=== PATIENT | male | born 1955 | race Caucasian/White ===

== ENCOUNTER 2016-08-10 06:17 | Day surgery (SDC) | payer OTHER, BC ==
[2016-07-27 08:47] VITALS: BMI 33.0
--- NOTE | 2016-07-27 09:22 | PAT Medication Instructions ---
Service Date Jul 27, 2016. Current Home Medication List Aspirin (Aspirin Ec), 81 MG PO QAM Medication Instructions For Your Scheduled Surgery - Take the following medications the morning of surgery with a sip of water: Aspirin (Aspirin Ec), 81 MG PO QAM (not told to stop by surgeon) If you have any questions please call us at [phone] or [phone] ( [place]) or [phone]
[~2016-08-10] VITALS: Ht 180.3 cm; Wt 111.0 kg
[~2016-08-10 06:17] MED LIST: ASPI81TA28 PO; CEFAZOLIN 2000 MG/60 ML D5W IV SCH; LACTATED RINGER'S 1000ML 1,000 ML IV SCH
[2016-08-10 06:49] VITALS: BP 141/83; PULSE 63; TEMP 36.9; O2SAT 95; Ht 180.3 cm; Wt 111.0 kg
[2016-08-10] MEDS ORDERED: FENTANYL CITRATE INJ 50 MCG/1 ML 2 ML VIAL ONE ×2 (07:30→09:09)
[2016-08-10] MEDS ORDERED: MIDAZOLAM HCL 1 MG/ML 2ML VIAL ONE (07:30)
[2016-08-10] MEDS ORDERED: BUPIVACAINE 0.5 % 5 MG/1 ML MPF 30ML VIAL ONE (08:26)
[2016-08-10] MEDS ORDERED: LIDOCAINE HCL 1% 20 ML VIAL ONE (08:26)
--- NOTE | 2016-08-10 08:44 | History & Physical Bridge Note ---
H&P Re-Evaluation Bridge Note: I have examined the patient, reviewed the History & Physical and in the interval since the performance of the History & Physical I have noted the following changes of clinical significance: No changes noted
--- NOTE | 2016-08-10 08:53 | DIAGNOSTIC IMAGING REPORT ---
LIMITED ABDOMINAL ULTRASOUND TO EVALUATE FOR HERNIA HISTORY: Epigastric hernia. COMPARISON: Abdominal ultrasound January 23, [address] of the abdomen and pelvis January 28, 2016. FINDINGS: Targeted sonography of the left aspect of the abdomen demonstrated a nonreducible fat-containing left mid to upper abdominal hernia. This corresponds to the hernia shown on prior ultrasound and CT. This was marked by Dr. Ace at time of ultrasound. IMPRESSION: Nonreducible fat-containing left mid to upper abdominal hernia. Electronically signed by: Magdi Mobley M.D. 08/10/2016 8:52 AM Dictated Date/Time: 08/10/2016 8:50 AM
[2016-08-10] MEDS ORDERED: PROPOFOL IV EMULSION 10 MG/ML 20 ML VIAL IV ONE (09:40)
[2016-08-10] MEDS ORDERED: BUPIVACAINE 0.5 % 5 MG/1 ML MPF 30ML VIAL INJ ONE (09:57)
--- NOTE | 2016-08-10 10:10 | [facility] Post Operative Brief Note ---
Immediate Operative Summary Operative Date Aug 10, 2016. Pre-Operative Diagnosis epigastric hernia Post-Operative Diagnosis epigastric hernia Procedure(s) Performed Epigastric Hernia Repair Surgeon Dr. Hany Ace Barback Surgeon(s) Tiffanie Leyva PA-C Estimated Blood Loss 5ml Findings See dictation Specimens none per surgeon Drains Noone Anesthesia General Complication(s) None Disposition Recovery Room / PACU
--- NOTE | 2016-08-10 10:12 | Discharge Instructions ---
Discharge Instructions Admission Reason for Admission: Epigastric Hernia Discharge Discharge Diagnosis / Problem: Same Discharge Goals Goal(s): Decrease discomfort Activity Recommendations Activity Limitations: per Instructions/Follow-up section Lifting Limitations: no more than 10 pounds Shower/Bathe: tomorrow (Shower only) . Instructions / Follow-Up Instructions / Follow-Up ACTIVITY RECOMMENDATIONS: * Walk as much as possible. * No heavy lifting (>10 lbs.) for 6 weeks. SPECIAL CARE INSTRUCTIONS: * Ice to hernia repair site on and off until bedtime tonight. * May shower in 24 hours. Let water run over area and pat dry. * Leave steri strips on for one week. * Call the surgeon's office with any questions or concerns - (ex. temperature higher than 101 degrees F, excessive bleeding or pain). MEDICATIONS: Resume previous medications unless instructed otherwise by your surgeon. * Ibuprofen 600 mg every 6 hours with food * Percocet 1 every 4 hours, as needed for pain FOLLOW UP VISIT: If not already scheduled, please call the office to schedule a two week follow- up appointment. Office number Current Hospital Diet Patient's current hospital diet: Discharge Diet Recommended Diet: Regular Diet Procedures Procedures Performed: Epigastric Hernia Repair Pending Studies Studies pending at discharge: no Medical Emergencies . Who to Call and When: Medical Emergencies: If at any time you feel your situation is an emergency, please call 911 immediately. . Non-Emergent Contact Non-Emergency issues call your: Primary Care Provider, Surgeon Call Non-Emergent contact if: your pain is worsening, wound has increased redness, wound has increased pain . "Provider Documentation" section prepared by Hany Ace. VTE Core Measure Inpt VTE Proph given/why not?: Treatment not indicated
[2016-08-10] MEDS ORDERED: ONDANSETRON INJ 2 MG/ML 2 ML VIAL IV PRN ×2 (10:15→10:30)
[2016-08-10] MEDS ORDERED: OXYCODONE/ACETAMINOPHEN 5-325 TAB PO PRN (10:15)
[2016-08-10] MEDS ORDERED: MoRPHine SULFATE 4 MG/ML 1 ML CARP\\VIAL IV PRN (10:15)
[2016-08-10] MEDS ORDERED: HYDROmorphone INJ 1 MG/ML SYR IV PRN (10:30)
[2016-08-10] MEDS ORDERED: FENTANYL CITRATE INJ 50 MCG/1 ML 2 ML VIAL IV PRN (10:30)
[2016-08-10] MEDS ORDERED: MEPERIDINE HCL 25 MG/ML CARP IV PRN (10:30)
[2016-08-10] MEDS ORDERED: ATROPINE SULFATE 0.1 MG/ML 5ML SYR IV PRN (10:30)
[2016-08-10] MEDS ORDERED: LABETALOL HCL IV 5 MG/ML 20ML IV PRN (10:30)
[2016-08-10] MEDS ORDERED: EpHEDrine SULFATE INJ 50 MG/ML AMP IV PRN (10:30)
[2016-08-10 10:50] VITALS: BP 136/78; PULSE 58; TEMP 36.8; O2SAT 93
--- NOTE | 2016-08-10 11:00 | OPERATIVE REPORT ---
DATE OF OPERATION: 08/10/2016 PREOPERATIVE DIAGNOSIS: Epigastric hernia. POSTOPERATIVE DIAGNOSIS: Same. PROCEDURE: Repair of epigastric hernia. SURGEON: Dr. Ace. MOBILE DEVELOPER: Shweta Leyva PA-C. FINDINGS: The patient had 2 small epigastric defects through which preperitoneal fat was protruding. One measured about 3 mm and the other about 7. There was a fascial bridge measuring 3-4 mm between them. The fascial bridge was divided, creating a single defect, and the hernia was then repaired. There were no incarcerated intraabdominal contents. TECHNIQUE: The patient was given general anesthetic after he had been marked using ultrasound in the holding area. The area was prepped and draped in the usual sterile fashion. Transverse incision was made, carried down through the subcutaneous tissue. The subcutaneous tissue was opened widely to expose the 2 areas of protruding fat. The smaller one which was more toward the right side was first identified. The fat was removed using cautery which allowed me to identify the edges of the fascial defect. I then noted the larger protrusion of fat more toward the left side. This fat was removed, allowing me to identify that fascial edge and away from the surrounding tissues. The fascial bridge was then easily seen and divided. The edges of the fascia were elevated and a preperitoneal retrofascial space was created. This was created for a distance of at least 6 cm from ammu-zl-ilzk and boa-dg-[id number]. Hemostasis was obtained using electrocautery. A 6.3 cm C-QUR V-patch was placed in the preperitoneal retrofascial position. The struts were attached to the edges of the fascia using 0 PDS and the fascial opening was then closed with a running #1 PDS. Hemostasis was obtained. The deep tissues were closed with interrupted 2-0 Vicryl. The superficial subcutaneous tissue was closed with running 3-0 Vicryl and the skin was closed with 4-0 Monocryl in a running subcuticular fashion. The skin was anesthetized with 0.5% Marcaine. The skin was cleansed, dried, benzoin placed, Steri-Strips applied. Estimated blood loss was 5 mL. Sponge, needle and instrument counts were correct prior to closure. The patient tolerated the surgical procedure without complication and he was transferred to recovery. I attest to the content of the Intraoperative Record and any orders documented therein. Any exceptio ns are noted below.
[2016-08-10 11:20] VITALS: BP 136/86; PULSE 56; O2SAT 95
[2016-08-10] MEDS ORDERED: SODIUM CHLORIDE 0.9% 1000ML 1,000 ML IV SCH (11:30)
[2016-08-10 11:55] VITALS: BP 144/81; PULSE 54; TEMP 36.4; O2SAT 96
--- NOTE | 2016-08-10 12:52 | Anesthesiology Progress Note ---
Anesthesia Post Op Note Date & Time Aug 10, 2016 at 12:53 Vital Signs Pain Intensity: 2 Vital Signs Past 12 Hours Date Time Temp Pulse Resp B/P Pulse Ox O2 Delivery O2 Flow Rate FiO2 08/10/16 11:55 36.4 54 18 144/81 96 Room Air 08/10/16 11:20 56 18 136/86 95 Room Air 08/10/16 10:50 36.8 58 16 136/78 93 Room Air 08/10/16 10:44 36.4 08/10/16 10:40 56 16 140/77 92 Room Air 08/10/16 10:30 57 16 134/86 98 Mask 10 08/10/16 10:20 58 16 136/83 97 Mask 10 08/10/16 10:10 36.4 62 16 128/84 95 Mask 10 08/10/16 06:49 36.9 63 18 141/83 95 Room Air Notes Mental Status: alert / awake / arousable, participated in evaluation Pt Amnestic to Procedure: Yes Nausea / Vomiting: adequately controlled Pain: adequately controlled Airway Patency, RR, SpO2: stable & adequate BP & HR: stable & adequate Hydration State: stable & adequate Anesthetic Complications: no major complications apparent
== END 2016-08-10 12:10 | disposition home or self-care (01) ==
LOC: C.ACU 06:17
PROVIDERS: ATTEND Surgery
DX: K43.9 Ventral hernia without obstruction or gangrene (principal); K57.30 Diverticulosis of large intestine without perforation or abscess without bleeding; I73.9 Peripheral vascular disease, unspecified; Z87.891 Personal history of nicotine dependence

== ENCOUNTER → 2016-08-24 | Outpatient (CLI) | payer BC, OTHER ==
[~2016-08-24] MED LIST changes: -CEFAZOLIN 2000 MG/60 ML D5W IV SCH; -LACTATED RINGER'S 1000ML 1,000 ML IV SCH
== END | disposition home or self-care (01) ==
LOC: C.RDSM 13:45
PROVIDERS: ATTEND Physical Medicine & Rehabilitation Sports Medicine
DX: M25.561 Pain in right knee (principal); M25.562 Pain in left knee

== ENCOUNTER → 2017-03-29 | Outpatient (CLI) | payer BC | END | disposition home or self-care (01) | LOC: C.RDSM 10:26 | PROVIDERS: ATTEND Physical Medicine & Rehabilitation Sports Medicine | DX: M25.569 Pain in unspecified knee (principal) ==

== ENCOUNTER 2019-12-28 09:48 | Observation (INO) ==
[2019-12-28] MEDS ORDERED: INDOMETHACIN 50 MG SUPP PR ONE ×3 (11:04→13:44)
[2019-12-28] MEDS ORDERED: ONDANSETRON INJ 2 MG/ML 2 ML VIAL IV PRN ×2 (11:10→13:41)
[2019-12-28] MEDS ORDERED: PATIENT'S HEIGHT AND/OR WEIGHT NEEDED SCH (11:20)
[2019-12-28] MEDS ORDERED: CIPROFLOXACIN / D5W 400 MG/200 ML BAG IV ONE (11:30)
[2019-12-28 11:39] LABS: Basophils # (auto) 0.05 K/uL (0-0.2); Eosinophils # (auto) 0.06 K/uL (0-0.5); Eosinophils % (auto) 1.2 %; Hematocrit (blood only) 41.7 % (42-52); Hemoglobin 14.1 g/dL (14.0-18.0); Immature Granulocytes # (auto) 0.01 K/uL (0.00-0.02); Immature Granulocytes % (auto) 0.2 %; Lymphocytes % (auto) 24.5 %; Mean Corpuscular Hemoglobin 30.7 pg (25-34); Mean Corpuscular Hgb Conc 33.8 g/dL (32-36); Mean Corpuscular Volume 90.7 fL (80-100); Mean Platelet Volume 9.9 fL (7.4-10.4); Monocytes # (auto) 0.45 K/uL (0.11-0.59); Monocytes % (auto) 9.2 %; Neutrophils # (auto) 3.13 K/uL (1.4-6.5); Neutrophils % (auto) 63.9 %; Platelet Count 253 K/uL (130-400); RDW Coefficient of Variation 15.1 % (11.5-14.5); RDW Standard Deviation 50.2 fL (36.4-46.3)
[2019-12-28 11:50] LABS: INR 1.1 (0.9-1.1); Prothrombin Time 11.2 Seconds (9.0-12.0)
--- NOTE | 2019-12-28 11:53 | Gastrointestinal Consultation ---
Date of Consultation December 28, 2019 Assessment & Plan (1) Jaundice: (2) Biliary obstruction: Pt is a 64 y/o male, who was directed for jaundice, edmundo colored stools x 1 week; outpt labs showed newly elevated LFTs, u/s today showed distended galbladder, CBD dilation of 1.3cm concerning for obstruction. - F/U admission labs - Keep NPO; Plan for ERCP for by Dr. Aliya Sheppard in OR this afternoon. Risks vs benefits of procedure was dicussed w pt - IVF hydration Supervising Physician Co-Signing Physician Notes I saw and evaluated the patient. He notes that he has been having intermittent symptoms of cramping over the past 4 to 6 weeks. Over the past 2 weeks he is noticed some itching and then developed lightly colored stools. He was found to have a significant elevation of his liver associated enzymes in addition to biliary dilation on ultrasound. Physical examination no obvious distress, mild scleral icterus mild right-sided abdominal tenderness Impression: patient presenting with increasing elevated LFTs and a dilated common bile duct on the right upper quadrant ultrasound in the setting of cholelithiasis. Even this we will proceed with upper endoscopy and endoscopic ultrasound to evaluate for evidence of choledocholithiasis or perhaps an occult mass within the pancreatic head. We will then proceed with ERCP for biliary decompression and hopefully gallstone extraction. We have discussed the risks to include bleeding, infection, perforation and need for follow-up studies. History of Present Illness Reason for Consultation: Biliary stone Requesting Physician: Dr. Jonathon Newberry Attending Physician: Dr. Aliya Sheppard History of Present Illness Pt is a 64 y/o male who was directly admitted after suspected to have CBD obstruction seen on U/S abd this AM. Pt had physical well check last week in PCP's office. LFTs were noted to be elevated, which is new. Told to stop cholesterol meds then and u/s ordered. Pt noticed himself to appear jaundiced for over a week, and admits to have edmundo colored stools. He denies fever, chills, CP, SOB, abd pain, n/v. He was visiting friend in [place] and returned over a week ago. He denies any sick contact. He denies tobacco products. Drinks ave 3 beers a day. Denies routine uses of APAP or herbal products. Denies family hx of autoimmune dz, hepatobiliary/pancreas malignancy. Father has hx of colon ca in 70s. Pt had colonoscopy about 2 months ago, reports had polyps, on 3-5 yrs recall. Admission labs pending Allergies Allergy/AdvReac Type Severity Reaction Status Date / Time No Known Drug Allergies Allergy Verified 05/16/19 15:31 Home Medications Home Medications Medication Instructions Recorded Confirmed Type aspirin 81 mg tablet,delayed 81 mg PO DAILY 05/16/19 05/16/19 History release celecoxib PO 05/16/19 05/16/19 History tadalafil 20 mg tablet 20 mg PO DAILY PRN 05/16/19 05/16/19 History Patient History Medical History Pulmonary embolism (Resolved ~2011) Surgical History History of arthroscopy of knee Status post repair of nerve Family History Mother Diabetes Family/Other Obstructive sleep apnea Social History Preferred Language: Bermudian Communication Ability: Effective Beliefs That Will Affect Care: None marital status: Current Living Situation: Spouse current occupational status: employed Other Information That Helps Us Care for You: No Feels Safe at Home: Yes Safety Concerns: Feels Safe At This Time Smoking Status: Never smoker Hx Alcohol Use: Yes Alcohol type: beer Hx Substance Use: No Review of Systems Review of Systems: All systems reviewed & are unremarkable except as noted in HPI & below Physical Exam Constitutional: WD/WN, vitals as above well groomed, cooperative and comfortable Eyes: + scleral abnormality (icteric) and PERRL ENMT: external ear and nose normal, oropharynx normal Respiratory: normal respiratory effort, lungs clear to auscultation Cardiovascular: RRR, no murmur, no edema Gastrointestinal (Abdomen): normal bowel sounds, soft, nontender, no hepatosplenomegaly Skin: no rashes, warm and dry + jaundice Psychiatric: A+Ox3, euthymic affect Lymphatic: no lymphedema
[2019-12-28 12:10] LABS: Albumin Level 3.5 gm/dl (3.4-5.0); BUN Creatinine Ratio 12.8 (10-20); Creatinine Clr Calc Pharmacy 120.5 ml/min; Est GFR (African American) 111.5; Est GFR (Non-African American) 96.2; Potassium 4.1 mmol/L (3.5-5.1)
[2019-12-28 12:13] LABS: Bilirubin,Total 4.8 mg/dl (0.2-1); Globulin 3.5 gm/dl (2.5-4.0)
[2019-12-28] MEDS ORDERED: LIDOCAINE HCL 2% 2 ML VIAL/AMP(20MG/ML) INFIL ONE (13:40)
[2019-12-28] MEDS ORDERED: PROPOFOL IV EMULSION 10 MG/ML 20 ML VIAL IV ONE (13:40)
[2019-12-28] MEDS ORDERED: fentaNYL citrate 100 MCG/2 ML VIAL ONE (13:40)
[2019-12-28] MEDS ORDERED: MIDAZOLAM HCL 1 MG/ML 2ML VIAL ONE (13:40)
[2019-12-28] MEDS ORDERED: ONDANSETRON INJ 2 MG/ML 2 ML VIAL ONE (13:40)
[2019-12-28] MEDS ORDERED: ROCURONIUM BROMIDE 10 MG/ML 5 ML VIAL IV ONE (13:40)
[2019-12-28] MEDS ORDERED: fentaNYL citrate 100 MCG/2 ML VIAL IV PRN (13:41)
[2019-12-28] MEDS ORDERED: ePHEDrine sulfate 50 MG/ML AMP IV PRN (13:41)
[2019-12-28] MEDS ORDERED: ATROPINE SULFATE 0.1 MG/ML 10ML SYR IV PRN (13:41)
--- NOTE | 2019-12-28 13:41 | Anesthesiology Consultation ---
Date of Service December 28, 2019 Assessment & Plan (1) Encounter for pre-operative examination: Chart Review Chart Review: Acceptable Risk for Surgery Consults Requested none ASA ASA2 Proposed Anesthesia Anesthesia Type: General Risk / Benefits Reviewed With: PT / POA / Parent / Guardian, Accepts Plan and Informed Consent Obtained History Surgery Operation Date: 12/28/19 10:20 Proposed Procedures p Endoscopic Retrograde Cholangiopancreatogram - Aliya Sheppard Height/Weight Height: 5 ft 11 in Weight: 106.8 kg Allergies Allergy/AdvReac Type Severity Reaction Status Date / Time No Known Drug Allergies Allergy Verified 05/16/19 15:31 Medications Home Medications Medication Instructions Recorded Confirmed Last Taken aspirin 81 mg tablet,delayed 81 mg PO DAILY 05/16/19 05/16/19 Unknown release celecoxib PO 05/16/19 05/16/19 Unknown tadalafil 20 mg tablet 20 mg PO DAILY PRN 05/16/19 05/16/19 Unknown NPO Date Last Intake of Fluids: 12/28/19 Time Last Intake of Fluids: 08:00 Date Last Intake of Solids: 12/27/19 Time Last Intake of Solids: 22:00 Past Medical History Medical History Pulmonary embolism (Resolved ~2011) Exercise / Class Metabolic Activity II 4-5 Yardwork/Stairs/Walk up hill Past Family History Family History Mother Diabetes Family/Other Obstructive sleep apnea Past Surgical History Surgical History History of arthroscopy of knee Status post repair of nerve Past Anesthesia History No Hx of Anesthesia Complications and No Family Hx of Anesthesia Complications History of PONV No Hx of PONV and No Hx of Motion Sickness Social History Smoking Status: Never smoker Hx Alcohol Use: Yes Alcohol type: beer alcohol intake frequency: 3 or more drinks per day Hx Substance Use: No Physical Exam Vital Signs Last Vital Signs Temp 99.7 F H 12/28/19 13:22 Pulse 56 L 12/28/19 13:22 Resp 18 12/28/19 13:22 BP 114/64 12/28/19 13:22 Pulse Ox 96 12/28/19 13:22 ENMT Mouth: no dentition abnormality Thyromental Distance: > or= 3.5 Finger Breadths Mallampati Class: III Neck normal visual inspection Respiratory normal respiratory effort Auscultation: lungs clear to auscultation bilaterally Cardiovascular Rate/Rhythm: regular rate and regular rhythm Testing Laboratory Results 12/28/19 11:25 12/28/19 11:25 PT 11.2 Seconds (9.0-12.0) 12/28/19 11:25 INR 1.1 (0.9-1.1) 12/28/19 11:25
--- NOTE | 2019-12-28 14:28 | GI REPORT ---
Patient Name: Guero Maddox Procedure Date: 12/28/2019 2:03 PM Date of : 1955 Admit Type: Inpatient Age: 64 Gender: Male Attending MD: Aliya Sheppard DO Procedure: Upper GI endoscopy Providers: Aliya Sheppard DO Referring MD: Jonathon Walsh Indications: Abnormal ultrasound of the GI tract Medicines: General Anesthesia Complications: No immediate complications. Estimated blood loss: Minimal. Estimated Blood Loss: Estimated blood loss was minimal. Procedure: Pre-Anesthesia Assessment: - Prior to the procedure, a History and Physical was performed, and patient medications, allergies and sensitivities were reviewed. The patient's tolerance of previous anesthesia was reviewed. - The risks and benefits of the procedure and the sedation options and risks were discussed with the patient. All questions were answered and informed consent was obtained. - Patient identification and proposed procedure were verified prior to the procedure by the physician, the nurse and the statuary painter. The procedure was verified in the pre-procedure area in the procedure room. - Pre-procedure physical examination revealed no contraindications to sedation. - ASA Grade Assessment: II - A patient with mild systemic disease. - After reviewing the risks and benefits, the patient was deemed in satisfactory condition to undergo the procedure. - The anesthesia plan was to use general anesthesia. - Immediately prior to administration of medications, the patient was re-assessed for adequacy to receive sedatives. - The heart rate, respiratory rate, oxygen saturations, blood pressure, adequacy of pulmonary ventilation, and response to care were monitored throughout the procedure. - The physical status of the patient was re-assessed after the procedure. After obtaining informed consent, the endoscope was passed under direct vision. Throughout the procedure, the patient's blood pressure, pulse, and oxygen saturations were monitored continuously.The upper GI endoscopy was accomplished without difficulty. The patient tolerated the procedure well. The Endoscope was introduced through the mouth, and advanced to the third part of duodenum. Findings: The examined esophagus was normal. The Z-line was regular and was found 39 cm from the incisors. The entire examined stomach was normal. The examined duodenum was normal. Impression: - Normal esophagus. - Z-line regular, 39 cm from the incisors. - Normal stomach. - Normal examined duodenum. - No specimens collected. Recommendation: - Perform an upper endoscopic ultrasound (UEUS) today. Aliya Sheppard D.O. Aliya Sheppard, 12/28/2019 2:28:14 PM This report has been signed electronically. Note Initiated On: 12/28/2019 2:03 PM Number of Addenda: 0 I attest to the content of the Intraoperative Record and orders documented therein, exceptions below {[id number]}
--- NOTE | 2019-12-28 14:49 | GI REPORT ---
Addendum Number: 1 Addendum Date: 12/28/2019 3:40:59 PM During the ERCP only stone as seen in addition to a large amount of biliary sludge. There was a stricture in the distal common bile duct, review of the eus images suggest there is wall thickening in the region of the biliary stricture. Given this I wonder about and underlying cholangiocarcinoma. Trenton Patel DO 12/28/2019 3:43:04 PM This report has been signed electronically. Patient Name: Guero Maddox Procedure Date: 12/28/2019 2:28 PM Date of : 1955 Admit Type: Inpatient Age: 64 Gender: Male Attending MD: Aliya Sheppard DO Procedure: Upper EUS Providers: Aliya Sheppard DO Referring MD: Shweta Acosta Indications: Abnormal ultrasound of the abdomen, Elevated liver enzymes Medicines: General Anesthesia Complications: No immediate complications. Estimated blood loss: Minimal. Estimated Blood Loss: Estimated blood loss was minimal. Procedure: Pre-Anesthesia Assessment: - Prior to the procedure, a History and Physical was performed, and patient medications, allergies and sensitivities were reviewed. The patient's tolerance of previous anesthesia was reviewed. - The risks and benefits of the procedure and the sedation options and risks were discussed with the patient. All questions were answered and informed consent was obtained. - Patient identification and proposed procedure were verified prior to the procedure by the physician, the nurse and the detailer furniture. The procedure was verified in the procedure room. - Pre-procedure physical examination revealed no contraindications to sedation. - ASA Grade Assessment: II - A patient with mild systemic disease. - After reviewing the risks and benefits, the patient was deemed in satisfactory condition to undergo the procedure. - The anesthesia plan was to use general anesthesia. - Immediately prior to administration of medications, the patient was re-assessed for adequacy to receive sedatives. - The heart rate, respiratory rate, oxygen saturations, blood pressure, adequacy of pulmonary ventilation, and response to care were monitored throughout the procedure. - The physical status of the patient was re-assessed after the procedure. After obtaining informed consent, the endoscope was passed under direct vision. Throughout the procedure, the patient's blood pressure, pulse, and oxygen saturations were monitored continuously. The Scope was introduced through the mouth, and advanced to the third part of duodenum. The upper EUS was accomplished without difficulty. The patient tolerated the procedure well. Findings: ENDOSONOGRAPHIC FINDING: : There was dilation in the common bile duct which measured up to 14 mm. Moderate hyperechoic material consistent with sludge was visualized endosonographically in the common bile duct. One stone was visualized endosonographically in the common bile duct. The stone was round. It was hyperechoic and characterized by shadowing. Extensive hyperechoic material consistent with sludge was visualized endosonographically in the gallbladder. There was no sign of significant endosonographic abnormality in the visualized portion of the liver. Homogeneous parenchyma and no focal pathology were identified. There was no sign of significant endosonographic abnormality in the entire pancreas. The pancreatic duct measured up to 2 mm in diameter. No masses, no cysts, the pancreatic duct was thin in caliber. No lymphadenopathy seen. There was no sign of significant endosonographic abnormality in the left adrenal gland. No adrenal gland enlargement was identified. Impression: - There was dilation in the common bile duct which measured up to 14 mm. - Hyperechoic material consistent with sludge was visualized endosonographically in the common bile duct. - One stone was visualized endosonographically in the common bile duct. - Hyperechoic material consistent with sludge was visualized endosonographically in the gallbladder. - There was no evidence of significant pathology in the visualized portion of the liver. - There was no sign of significant pathology in the entire pancreas. - Endosonographic images of the left adrenal gland were unremarkable. - No specimens collected. Recommendation: - Perform an ERCP today. Aliya Sheppard D.O. Aliya Sheppard, 12/28/2019 2:46:20 PM This report has been signed electronically. Note Initiated On: 12/28/2019 2:28 PM Number of Addenda: 1 I attest to the content of the Intraoperative Record and orders documented therein, exceptions below {[id number]}
--- NOTE | 2019-12-28 15:49 | Post Operative Brief Note ---
Immediate Post Op Note v1 Date of Surgery December 28, 2019 Pre & Post Diagnosis Operation Date: 12/28/19 10:20 Pre-Op Diagnosis: Dilated common duct, Jaundice, suspected gallstones Post-Op Diagnosis: distal common bile duct stricture I identified the patient and participated in the time-out.: Yes Procedure Operation Date: 12/28/19 10:20 Actual Procedures p Upper Gastrointestional Endoscopy, Endoscopic Ultrasound ,Endoscopic Retrograde Cholangiopancreatogram, sphincterotomy, brushing for cytology of co mmon bile duct, and placement of biliary stent (Not Applicable) - Aliya Sheppard Surgeon Aliya Sheppard Adaptive Physical Educator none Estimated Blood Loss 0 Findings Consistent with Post-Op Diagnosis
--- NOTE | 2019-12-28 16:01 | Fluoroscopy Report ---
[place] ERCP biliary ductal CLINICAL HISTORY: ERCP IN OR ADD ON CASE COMPARISON STUDY: Abdominal ultrasound 12/28/2019. FLUOROSCOPY TIME: 3 minutes and 6 seconds. FINDINGS: 9 fluoroscopic spot images of the right upper quadrant. The ampulla was cannulated and cont rast was injected into the common bile duct. The proximal common bile duct is distended. There is a t ight irregular stricture at the mid common bile duct. This is concerning for a mass. A plastic common bile duct stent is placed and appears in good position. IMPRESSION: Irregular tight stricture at the mid common bile duct concerning for a neoplastic process . A common bile duct stent was placed and appears in good position. ACT 112: Positive. There are findings on this exam that require communication between the performing entity and the patient following Patient Test Result Information Act ([place] Act 112) guidelines. Electronically signed by: Kennedy Plascencia M.D. 12/28/2019 4:00 PM
--- NOTE | 2019-12-28 16:10 | History & Physical Report ---
Date of Service December 28, 2019 Assessment & Plan (1) Biliary obstruction: today he had EGD that was normal EUS showed thickening of common bile duct and dilation with some sludge and a single stone Dr. Sheppard performed ERCP that shows a narrowing of the CBD concerning for cholangiocarcinoma stent placed in CBD to promote drainage d/w Dr. Sheppard, he ordered CT abdomen/pelvis and chest for further work up can be discharged in the morning, plans to refer him to tertiary care for oncological surgery evaluation (2) Jaundice: due to obstruction, bili is 4.8 Admission and Anticipated Discharge Date Admission Date: December 28, 2019 History of Present Illness Chief Complaint: I was having light stools Primary Care Provider: Shweta Acosta PA-C 64 yo male with history of arthritis, remote history of pulmonary embolism, pre sented to the hospital from PCP office due to elevated bilirubin and alk phos and an outpatient liver US showing dilated common bile duct. The patient states that he never had issues with his liver or gall bladder in the past. He noticed a few weeks ago he was having some abdominal issues. He then noticed that he was itchy and his stools were light, his urine was dark. He went to his PCP for blood work and was found to have slightly elevated bilirubin and alk phos. Abdominal US was ordered to evaluate the liver, showed common bile duct was dilated. He was directly admitted to the hospital for urgent GI evaluation. Of note, he denies any fever/chills or sweats. No known weight loss. He denies cough, dyspnea, chest pain/pressure. Some vague RUQ pain but no nausea/vomiting, no constipation or diarrhea. No rash. He has noticed some yellow discoloration to his skin. Allergies Allergy/AdvReac Type Severity Reaction Status Date / Time No Known Drug Allergies Allergy Verified 05/16/19 15:31 Home Medications Home Medications Medication Instructions Recorded Confirmed Type aspirin 81 mg tablet,delayed 81 mg PO DAILY 05/16/19 05/16/19 History release celecoxib PO 05/16/19 05/16/19 History tadalafil 20 mg tablet 20 mg PO DAILY PRN 05/16/19 05/16/19 History Past Med/Surg History Medical History Pulmonary embolism (Resolved ~2011) Surgical History History of arthroscopy of knee Status post repair of nerve Family History Mother Diabetes Family/Other Obstructive sleep apnea Social History Preferred Language: Yakut Communication Ability: Effective Beliefs That Will Affect Care: None marital status: Current Living Situation: Spouse current occupational status: employed Other Information That Helps Us Care for You: No Feels Safe at Home: Yes Safety Concerns: Feels Safe At This Time Smoking Status: Never smoker Hx Alcohol Use: Yes Alcohol type: beer Hx Substance Use: No Review of Systems Review of Systems: All systems reviewed & are unremarkable except as noted in HPI & below Physical Exam Constitutional: WD/WN, vitals as above Eyes: PERRL and EOM intact bilaterally; sclerae not anicteric ENMT: external ear and nose normal, oropharynx normal Neck: trachea midline, no thyromegaly Respiratory: normal respiratory effort, lungs clear to auscultation Cardiovascular: RRR, no murmur, no edema Gastrointestinal (Abdomen): normal bowel sounds, soft, nontender, no hepatosplenomegaly Musculoskeletal: no cyanosis or clubbing, extremities motor strength 5/5 Skin: normal turgor and + jaundice; no rashes Neurologic: patellar DTR's 2+ bilat, sensation intact and PERRL, EOMI, accommodation nl, no face palsy, no dysarthria Psychiatric: A+Ox3, euthymic affect Lymphatic: no cervical or axillary lymphadenopathy Results & Data Results & Data ([facility]) Vital Signs (Past 12 Hours) Vital Signs Temp Pulse Resp BP Pulse Ox 12/28/19 13:22 37.6 C H 56 L 18 114/64 96 12/28/19 11:32 36.8 C 20 131/80 97 Laboratory Results Laboratory Results - last 24 hr 12/28/19 12/28/19 12/28/19 11:25 11:25 11:25 WBC 4.90 RBC 4.60 L Hgb 14.1 Hct 41.7 L MCV 90.7 MCH 30.7 MCHC 33.8 RDW Std Deviation 50.2 H RDW Coeff of Chantel 15.1 H Plt Count 253 MPV 9.9 Immature Gran % (Auto) 0.2 Neut % (Auto) 63.9 Lymph % (Auto) 24.5 [place] % (Auto) 9.2 Eos % (Auto) 1.2 Baso % (Auto) 1.0 Neut # (Auto) 3.13 Lymph # (Auto) 1.20 [place] # (Auto) 0.45 Eos # (Auto) 0.06 Baso # (Auto) 0.05 Immature Gran # (Auto) 0.01 PT 11.2 INR 1.1 Sodium 139 Potassium 4.1 Chloride 109 H Carbon Dioxide 24 Anion Gap 6.0 BUN 10 Creatinine 0.79 Est Cr Clr Drug Dosing 120.5 Est GFR ( Amer) 111.5 Est GFR (Non-Af Amer) 96.2 BUN/Creatinine Ratio 12.8 Glucose 102 H Calcium 9.0 Total Bilirubin 4.8 H AST 111 H ALT 168 H Alkaline Phosphatase 812 H Total Protein 7.0 Albumin 3.5 Globulin 3.5 Albumin/Globulin Ratio 1.0 Medications Administered Current Inpatient Medications Atropine Sulfate (Atropine Sulfate) 0.5 mg IV Q1M PRN PRN Reason: PACU Use-HR<40 &/or Bradycardi Stop: 12/28/19 21:41 Ephedrine Sulfate (Ephedrine Sulfate) 5 mg IV Q5M PRN PRN Reason: PACU Use Only-SBP<90 mmHg Stop: 12/28/19 21:41 Fentanyl Citrate (Fentanyl Citrate) 25 mcg IV Q5M PRN PRN Reason: PACU Use Only-Pain Stop: 12/28/19 21:42 Ciprofloxacin (Cipro) 400 mg in 200 mls @ 100 mls/hr IV Q12H [facility]; Protocol Stop: 01/08/20 00:00 Metronidazole (Flagyl) 500 mg in 100 mls @ 100 mls/hr IV Q8H [facility]; Protocol Stop: 01/07/20 11:59 Ondansetron HCl (Zofran) 4 mg IV Q6H PRN PRN Reason: Nausea Stop: 01/27/20 11:09 Ondansetron HCl (Zofran) 4 mg IV ONCE PRN PRN Reason: PACU Use Only-Nausea/Vomiting Stop: 12/28/19 21:42 Code Status & VTE Plan VTE Prophylaxis Plan VTE Prophylaxis will be ordered: Yes PG Care Time/CCT Total # of Minutes Spent Total Time Spent with Patient: Total time spent is greater than 50% in coordination of care (as documented) at patient's floor/unit and/or counseling patient: Coding Level of Care Code 11887 Initial Inpt Care Lvl 2 Diagnoses Biliary obstruction K83.1 Jaundice R17
--- NOTE | 2019-12-28 16:20 | Anesthesiology Progress Note ---
Date of Service December 28, 2019 Anesthesia Post Procedure Vital Signs Vital Signs: Temp Pulse Pulse Resp BP Pulse Ox 12/28/19 16:15 60 15 122/83 98 12/28/19 16:05 84 17 124/85 97 12/28/19 15:59 97.3 F L 78 19 138/93 98 12/28/19 13:22 99.7 F H 56 L 18 114/64 96 12/28/19 11:32 98.2 F 20 131/80 97 Transfer of Care Handoff Completed per policy Notes Mental Status: alert / awake / arousable and participated in evaluation Patient Amnestic to Procedure: Yes Nausea / Vomiting: adequately controlled Pain: adequately controlled Airway Patency, RR, SpO2: stable & adequate BP & HR: stable & adequate Hydration State: stable & adequate Anesthetic Complications: no major complications apparent and Pt Satisfied with anesthetic care
--- NOTE | 2019-12-28 16:47 | GI REPORT ---
Patient Name: Guero Maddox Procedure Date: 12/28/2019 2:11 PM Date of : 1955 Admit Type: Inpatient Age: 64 Gender: Male Attending MD: Aliya Sheppard DO Procedure: ERCP Providers: Aliya Sheppard DO Referring MD: Jonathon Walsh Indications: Jaundice, Elevated liver enzymes Medicines: General Anesthesia Complications: No immediate complications. Estimated blood loss: Minimal. Estimated Blood Loss: Estimated blood loss was minimal. Procedure: Pre-Anesthesia Assessment: - Prior to the procedure, a History and Physical was performed, and patient medications, allergies and sensitivities were reviewed. The patient's tolerance of previous anesthesia was reviewed. - The risks and benefits of the procedure and the sedation options and risks were discussed with the patient. All questions were answered and informed consent was obtained. - Patient identification and proposed procedure were verified prior to the procedure by the physician, the nurse and the coding and reimbursement specialist. The procedure was verified in the procedure room. - Pre-procedure physical examination revealed no contraindications to sedation. - ASA Grade Assessment: II - A patient with mild systemic disease. - Immediately prior to administration of medications, the patient was re-assessed for adequacy to receive sedatives. - The heart rate, respiratory rate, oxygen saturations, blood pressure, adequacy of pulmonary ventilation, and response to care were monitored throughout the procedure. - The physical status of the patient was re-assessed after the procedure. After obtaining informed consent, the scope was passed under direct vision. Throughout the procedure, the patient's blood pressure, pulse, and oxygen saturations were monitored continuously. The Scope was introduced through the mouth, and advanced to the duodenum and used to inject contrast into the bile duct. The ERCP was accomplished without difficulty. The patient tolerated the procedure well. Findings: The forensic psychiatrist film was normal. The esophagus was successfully intubated under direct vision without detailed examination of the pharynx, larynx, and associated structures, and upper GI tract. The upper GI tract was grossly normal. The major papilla was normal. The bile duct was deeply cannulated with the short-nosed traction sphincterotome and 0.035 in Acrobat guidewire. Contrast was injected. I personally interpreted the bile duct images. Contrast extended to the entire biliary tree. The middle third of the main bile duct and upper third of the main bile duct were diffusely dilated, secondary to a stricture. The largest diameter was 14 mm. The lower third of the main bile duct contained a single segmental stenosis 15 mm in length (intrapancreatic portaion, well below the bifurcation and the common hepatic duct). Biliary sphincterotomy was made with a Fusion OMNI sphincterotome using ERBE electrocautery. There was no post-sphincterotomy bleeding. To discover objects, the biliary tree was swept with a 15 mm balloon starting at the bifurcation. Sludge was swept from the duct. One stone was removed. No stones remained. Cells for cytology were obtained by brushing in the lower third of the main bile duct. One 10 Fr by 7 cm biliary stent with a single external flap and a single internal flap was placed 7 cm into the common bile duct. Dark bile and sludge flowed through the stent. The stent was in good position. The endoscope was withdrawn from the patient. Indomethacin 100 mg was given via suppository to decrease the risk of post-ERCP pancreatitis (PEP). The total fluoroscopy exposure time was 3 minutes and 6 seconds. Impression: - The major papilla appeared normal. - A suspicous segmental biliary stricture was found in the distal common bile duct. The stricture was indeterminate and may represent a distal extrahepatic cholangiocarcinoma.. - Choledocholithiasis was found. Complete removal was accomplished by biliary sphincterotomy and balloon extraction. - A biliary sphincterotomy was performed. - Cells for cytology obtained in the lower third of the main duct. - One 10 fr 7 cm biliary stent was placed into the common bile duct. - Indomethacin given to decrease risk of post-ERCP pancreatitis. Recommendation: - Avoid aspirin and nonsteroidal anti-inflammatory medicines for 5 days. - Clear liquid diet today. - Use broad spectrum antibiotics for 5 days. Aliya Sheppard D.O. Aliya Sheppard DO 12/28/2019 4:47:36 PM This report has been signed electronically. Note Initiated On: 12/28/2019 2:11 PM Number of Addenda: 0 I attest to the content of the Intraoperative Record and orders documented therein, exceptions below {[id number]}
[2019-12-28] MEDS ORDERED: IOVERSOL 100ml IV PRN (19:27)
--- NOTE | 2019-12-28 19:43 | CT Scan Report ---
CT chest w con CT DOSE: 1679.93 mGy.cm HISTORY: eval for metastatic disease TECHNIQUE: Multiaxial CT images of the chest were performed following the intravenous administration of contrast. A dose lowering technique was utilized adhering to the principles of ALARA. COMPARISON: None. FINDINGS: The lungs are clear. The mediastinal vascular structures are within normal limits. No media stinal or hilar lymphadenopathy. No pleural effusion or pneumothorax. Limited views of the upper abdo men demonstrate a normal liver and spleen. IMPRESSION: No significant abnormality identified within the chest. ACT 112: Negative or not required by law. The above report was generated using voice recognition software. It may contain grammatical, syntax or spelling errors. Electronically signed by: Hany Beyer M.D. 12/28/2019 7:41 PM
--- NOTE | 2019-12-28 19:51 | CT Scan Report ---
CT abd pelvis oral and IV con CT DOSE: HISTORY: eval for metastatic disease; suspected cholangioca TECHNIQUE: Multiaxial CT images of the abdomen and pelvis were performed following the use of intrave nous and oral contrast. A dose lowering technique was utilized adhering to the principles of ALARA. COMPARISON STUDY: 01/28/2016 FINDINGS: Lung bases are clear. Several hepatic cysts which have been present as compared to the prio r study. Radiopaque tear is identified within the gallbladder possibly secondary to the prior ERCP procedure. Possible gallstones in addition to the contrast described. A biliary ductal stent is present. No evidence for biliary ductal dilatation. Pancreatic tissue appears unremarkable. There is no dilatation of the pancreatic duct. Mild hyperplastic changes of the adrenal glands bilaterally. Kidneys negative for hydronephrosis. Bowel pattern appears nonobstructive. There may be a minimal nonobstructive ileus. No significant abdominal pelvic or inguinal adenopathy. IMPRESSION: 1. Operative changes consistent with placement of a common bile duct stent. 2. Gallstones. 3. Several small hepatic cysts unchanged compared to a prior study 4. Mild bilateral adrenal hyperplasia. 5. Study is otherwise unremarkable. 6. No evidence for metastatic disease. ACT 112: Negative or not required by law. The above report was generated using voice recognition software. It may contain grammatical, syntax or spelling errors. Electronically signed by: Hany Beyer M.D. 12/28/2019 7:49 PM
--- NOTE | 2019-12-28 22:21 | Electrocardiogram Report ---
Test Reason : Blood Pressure : / mmHG Vent. Rate : 060 BPM Atrial Rate : 060 BPM P-R Int : 154 ms QRS Dur : 088 ms QT Int : 420 ms P-R-T Axes : 018 065 030 degrees QTc Int : 420 ms Sinus rhythm with Premature supraventricular complexes and with occasional Premature ventricular comp lexes Otherwise normal ECG When compared with ECG of 29-SEP-2015 18:46, Premature ventricular complexes are now Present Premature supraventricular complexes are now Present T wave amplitude has increased in Lateral leads Confirmed by Itz Bojorquez ([id number]) on 12/28/2019 10:21:05 PM Referred By: Shweta Acosta Confirmed By:Itz Bojorquez
[2019-12-28] MEDS: metroNIDAZOLE 500 MG/100 ML BAG IV SCH ×2 (23:19→23:24)
[2019-12-29] MEDS: metroNIDAZOLE 500 MG/100 ML BAG IV SCH (04:40)
[2019-12-29] MEDS ORDERED: CIPROFLOXACIN / D5W 400 MG/200 ML BAG IV SCH ×2 (06:00)
[2019-12-29 08:16] LABS: Basophils # (auto) 0.05 K/uL (0-0.2); Basophils % (auto) 0.8 %; Eosinophils # (auto) 0.05 K/uL (0-0.5); Eosinophils % (auto) 0.8 %; Hematocrit (blood only) 41.5 % (42-52); Hemoglobin 13.6 g/dL (14.0-18.0); Immature Granulocytes # (auto) 0.01 K/uL (0.00-0.02); Immature Granulocytes % (auto) 0.2 %; Lymphocytes # (auto) 1.13 K/uL (1.2-3.4); Lymphocytes % (auto) 17.7 %; Mean Corpuscular Hemoglobin 30.5 pg (25-34); Mean Corpuscular Hgb Conc 32.8 g/dL (32-36); Mean Platelet Volume 10.2 fL (7.4-10.4); Monocytes # (auto) 0.47 K/uL (0.11-0.59); Monocytes % (auto) 7.3 %; Neutrophils # (auto) 4.69 K/uL (1.4-6.5); Neutrophils % (auto) 73.2 %; Platelet Count 242 K/uL (130-400); RDW Coefficient of Variation 15.2 % (11.5-14.5); RDW Standard Deviation 51.4 fL (36.4-46.3); Red Blood Count 4.46 M/uL (4.7-6.1)
[2019-12-29 08:50] LABS: BUN Creatinine Ratio 10.3 (10-20); Calcium 8.7 mg/dl (8.5-10.1); Creatinine Clr Calc Pharmacy 132.3 ml/min; Est GFR (African American) 115.9
[2019-12-29 08:53] LABS: Bilirubin,Total 2.9 mg/dl (0.2-1)
--- NOTE | 2019-12-29 10:40 | Gastroenterology Progress Note ---
Date of Service December 29, 2019 Assessment & Plan (1) Biliary obstruction: (2) Jaundice: Pt is a 64 y/o male, w jaundice, edmundo colored stools x 1 week; labs showed newly elevated LFTs, u/s showed distended galbladder, CBD dilation of 1.3cm concerning for obstruction. He underwent EG/EUS/ERCP on 12/27: noted to have suspicious segmental biliary stricture in distal CBD which may be cholangicarcinoma; choledocholithiasis found, removed w biliary sphincterectomy and balloon extraction, biliary stent placed in CBD. CT chest/abd/pelvis w/o signs of metastatic disease. LFTs trending down, pt clinically doing well. - Check CA 19-9 - Avoid ASA, NSAIDs x 5 days after biliary sphincterectomy - Cipro/Flagyl antibx x 5 days - Advanced to FL diet today - Will discuss w attending physician about possible DC home. We will f/u final pathology and review results w pt when available. Admission and Anticipated Discharge Date Admission Date: December 28, 2019 Supervising Physician Co-Signing Physician Notes The patient was discharged prior to afternoon rounds. We are awaiting his cytology results. 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 Subjective Pt denies abd pain ,n/v. Noted LFTs trending down. Review of Systems Review of Systems: All systems reviewed & are unremarkable except as noted in HPI & below Physical Exam Constitutional: WD/WN, vitals as above well groomed, cooperative and comfortable Eyes: PERRL, conjunctivae normal, anicteric sclerae ENMT: external ear and nose normal, oropharynx normal Respiratory: normal respiratory effort, lungs clear to auscultation Cardiovascular: RRR, no murmur, no edema Gastrointestinal (Abdomen): normal bowel sounds, soft, nontender, no hepatosplenomegaly Skin: no rashes, warm and dry + jaundice (less) Psychiatric: A+Ox3, euthymic affect Lymphatic: no lymphedema Results & Data ([facility]) Vital Signs (Past 12 Hours) Vital Signs Temp Pulse Pulse Resp BP Pulse Ox 12/29/19 07:49 37.0 C 43 L 16 120/72 95 12/29/19 03:30 36.8 C 60 16 117/69 95
--- NOTE | 2019-12-29 11:11 | Discharge Summary ---
Date of Service December 29, 2019 Admission HPI Per Admitting Provider 64 yo male with history of arthritis, remote history of pulmonary embolism, presented to the hospital from PCP office due to elevated bilirubin and alk phos and an outpatient liver US showing dilated common bile duct. The patient states that he never had issues with his liver or gall bladder in the past. He noticed a few weeks ago he was having some abdominal issues. He then noticed that he was itchy and his stools were light, his urine was dark. He went to his PCP for blood work and was found to have slightly elevated bilirubin and alk phos. Abdominal US was ordered to evaluate the liver, showed common bile duct was dilated. He was directly admitted to the hospital for urgent GI evaluation. Of note, he denies any fever/chills or sweats. No known weight loss. He denies cough, dyspnea, chest pain/pressure. Some vague RUQ pain but no nausea/vomiting, no constipation or diarrhea. No rash. He has noticed some yellow discoloration to his skin. Principal Diagnosis Common bile duct obstruction, possible cholangiocarcinoma Discharge Exam Constitutional WD/WN, vitals as above Eyes + anicteric sclerae, PERRL and EOM intact bilaterally ENMT external ear and nose normal, oropharynx normal Neck trachea midline, no thyromegaly Respiratory normal respiratory effort, lungs clear to auscultation Cardiovascular RRR, no murmur, no edema Gastrointestinal (Abdomen) normal bowel sounds, soft, nontender, no hepatosplenomegaly Musculoskeletal no cyanosis or clubbing, extremities motor strength 5/5 Skin normal turgor; no rashes and no jaundice Neurologic patellar DTR's 2+ bilat, sensation intact and PERRL, EOMI, accommodation nl, no face palsy, no dysarthria Psychiatric A+Ox3, euthymic affect Lymphatic no cervical or axillary lymphadenopathy Discharge Data Allergies Allergy/AdvReac Type Severity Reaction Status Date / Time No Known Drug Allergies Allergy Verified 05/16/19 15:31 Consultations 12/28/19 11:10 Consult Gastroenterology Routine Procedures Performed Operation Date: 12/28/19 10:20 Actual Procedures p Endoscopic Retrograde Cholangiopancreatogram, sphincterotomy, brushing for cytology of common bile duct, and placement of biliary stent (Not Applicable) - Aliya Sheppard s Upper Gastrointestional Endoscopy,(Not Applicable) - Aliya Sheppard s Endoscopic Ultrasound(Not Applicable) - Aliya Sheppard Ordered Studies 12/28/19 FL ERCP biliary ductal Routine 12/28/19 13:44 US upper EUS PACS images Routine 12/28/19 14:10 US upper EUS PACS images Routine 12/28/19 15:58 CT abd pelvis oral and IV con Routine CT chest w con Routine Hospital Course (1) Biliary obstruction: 12/28: EGD that was normal EUS showed thickening of common bile duct and dilation with some sludge and a single stone Dr. Sheppard performed ERCP that shows a narrowing of the CBD concerning for cholangiocarcinoma stent placed in CBD to promote drainage bili trending down to 2.9 from 4.8 no jaundice or icterus today Ca 19-9 ordered pathology from bile duct brushings pending CT abdomen/pelvis and CT chest show no evidence of diffuse metastatic disease, encouraging that the lesion is potentially resectable discharge home on Cipro and Flagyl follow up with GI next week, patient is requesting referral to [facility] for evaluation by oncologic surgeon (2) Jaundice: due to obstruction, bili trending down and no longer with jaundice Total Time Total Time Spent Total Time Spent (In Minutes): 31 Total Time Includes: Examination of the Patient, Discharge Planning, Medication Reconciliation and Communication With Other Providers (Dr. Sheppard) Discharge Plan Discharge Items Patient Disposition: Home - Self-Care Reason For Visit: COMMON BILE DUCT OBSTRUCTION Discharge Diagnosis: Common bile duct obstruction possible cholangiocarcinoma Gall stones Condition on Discharge: Good Goals: follow up with [facility] for pathology results, referral to oncologic surgeon Activity: Resume your previous activity Driving/Machine Use: Resume 1 day after discharge Weightbearing: Full weightbearing Non-emergency contact: Primary Care Provider and Clothing Worker Call non-emergency contact if: you have any medication questions, your symptoms worsen and you have a fever Follow-up/Referrals: Aliya Sheppard [Physician] - (one week) Shweta Acosta PA-C [Primary Care Provider] - Diet: Regular Addtl Attending Provider Instructions: Medications: - CIPRO and FLAGYL: take for 5 days, empiric antibiotics after procedure, scripts sent to [facility] ASP[facility]IN and CELEBREX: hold these medications for 5 days after procedure Common bile duct obstruction, narrowing in duct suggesting possible cholangiocarcinoma, gall stones Dr. Sheppard performed EGD, endoscopic US and ERCP with placement of bile duct stent after taking brushings for duct for pathology this morning, your bilirubin is coming down as expected from 4 yesterday to 2.9 and your alkaline phosphatase is also coming down your pathology from the brushings is pending, will take a few days CT of the chest, abdomen/pelvis does NOT show any signs of metastatic disease, specifically no lesions in liver or lungs Dr. Sheppard will follow up with you closely, likely next week, and refer you to oncologic surgeon to evaluate the lesion for resection advance your diet as tolerated Pending Studies at Discharge: Yes Studies:: pathology from common bile duct brushings Stand-Alone Forms: My [facility], Smoking Cessation Medications and DC Order Prescriptions: New ciprofloxacin HCl 500 mg tablet 500 mg PO BID Qty: 10 RF: 0 metronidazole [Flagyl] 500 mg tablet 500 mg PO Q8H 5 Days Qty: 15 RF: 0 Continued tadalafil [Cialis] 20 mg tablet 20 mg PO DAILY PRNRF: 0 Discontinued aspirin [Aspir-81] 81 mg tablet,delayed release (DR/EC) 81 mg PO DAILY RF: 0 celecoxib PO RF: 0 Discharge Orders: Discharge Order (Routine); Ordered 12/29/19 Ordered By: Jonathon Palmer/Other Patient Handouts: Metronidazole tablets or capsules, Ciprofloxacin tablets Admission Data Admit Date/Time: 12/28/19 11:07 Attending Provider: Jonathon Newberry Admit Provider: Jonathon Newberry Primary Care Provider: Shweta Acosta Other Providers: Aliya Sheppard Other Interventions: Discharge Summary Assessment (RN) Last Done: 12/29/19 11:16 DC Date/Time DO NOT enter until pt leaves facility: 12/29/19 12:28 Coding Level of Care Code D/C Day Management >30 mins Diagnoses Biliary obstruction K83.1 Jaundice R17
== END 2019-12-29 12:28 | disposition home or self-care (01) ==
LOC: 2N 11:07 → INTOOBSV 11:07 → 3W 12-29 04:04